=== PATIENT | male | born 1985 | race Caucasian/White ===

== ENCOUNTER → 2018-08-02 | Emergency (ER) | payer OTHER ==
[2018-08-02 10:28] VITALS: BP 134/90
--- NOTE | 2018-08-02 10:43 | UC ---
Throat Pain/Nasal Max HPI - HPI Summary HPI Summary: 33 yo male presents with a sore throat and running nose for the last 3 days. He tells me that at one time he had a temperature of 100.2F. Has been taking tylenol for his discomfort with mild relief. Denies fever, chills, cough, SOB, chest pain. - History of Current Complaint Chief Complaint: UCGeneralIllness Stated Complaint: FEVER Time Seen by Provider: 08/02/18 10:37 Hx Obtained From: Patient Onset/Duration: Sudden Onset Severity: Mild Pain Intensity: 2 Pain Scale Used: 0-10 Numeric - Allergies/Home Medications Allergies/Adverse Reactions: Allergies Allergy/AdvReac Type Severity Reaction Status Date / Time Penicillins Allergy Rash Verified 08/02/18 10:19 Home Medications: Home Medications Acetaminophen [Tylenol] 500 mg PO DAILY PRN 08/02/18 [History Confirmed 08/02/18 ] Colestipol (NF) 1 gm PO BID 08/02/18 [History Confirmed 08/02/18] Multivitamin [Multivitamins] 1 tab PO DAILY 08/02/18 [History Confirmed 08/02/18 ] inFLIXimab* [Remicade*] 08/02/18 [History] PMH/Surg Hx/FS Hx/Imm Hx - Additional Past Medical History Additional PMH: Ulcerative Colitis - Surgical History Surgical History: Yes Surgery Procedure, Year, and Place: t&a-. hernia repair- 09/2012. I&D- rectal abscess- 12/2014. abdominal surgery- 2013- [facility] [employer]. small bowel obstruction- 01/2015 - Family History Known Family History: Positive: None - Social History Occupation: Employed Full-time Lives: With Family Alcohol Use: None Substance Use Type: None Smoking Status (MU): Never Smoked Tobacco Review of Systems Constitutional: Negative Skin: Negative Eyes: Negative ENT: Nasal Discharge, Sinus Congestion, Sinus Pain/Tenderness Respiratory: Cough Cardiovascular: Negative Gastrointestinal: Negative All Other Systems Reviewed And Are Negative: Yes Physical Exam - Summary Physical Exam Summary: GENERAL: NAD. WDWN. No pain distress. SKIN: No rashes, sores, lesions, or open wounds. HEENT: Head: AT/NC Eyes: EOM intact. Conjunctiva clear without inflammation or discharge. Ears: Hearing grossly normal. TMs intact, no bulging, erythema, or edema. Nose: Nasal mucosa pink and moist. NTTP maxillary and frontal sinus. Throat: Posterior oropharynx without exudates, erythema, or tonsillar enlargement. Uvula midline. NECK: Supple. Nontender. No lymphadenopathy. CHEST: CTAB. No r/r/w. No accessory muscle use. Breathing comfortably and in no distress. CV: RRR. Without m/r/g. Pulses intact. Cap refill <2seconds NEURO: Alert. PSYCH: Age appropriate behavior. Triage Information Reviewed: Yes Vital Signs: Initial Vital Signs Temp 98 F 08/02/18 10:21 Pulse 82 08/02/18 10:21 Resp 16 08/02/18 10:21 BP 134/90 08/02/18 10:21 Pulse Ox 97 08/02/18 10:21 Vital Signs Reviewed: Yes Throat Pain/Nasal Course/Dx - Course Course Of Treatment: Suspect viral illness. Exam is WNL and pt has not taken anything other than tylenol for his symptoms. Advised to try Mucinex OTC and flonase. F/u prn - Differential Dx/Diagnosis Provider Diagnoses: Viral syndrome Discharge - Sign-Out/Discharge Documenting (check all that apply): Patient Departure All imaging exams completed and their final reports reviewed: No Studies - Discharge Plan Condition: Stable Disposition: HOME Patient Education Materials: Viral Syndrome (ED) Referrals: No Primary Care Phys,NOPCP [Primary Care Provider] - Additional Instructions: If you develop a fever, shortness of breath, chest pain, new or worsening symptoms - please call your PCP or go to the ED. Your blood pressure was mildly elevated at todays visit. Please see your primary provider within 4 weeks for recheck and re-evaluation. 1) May try OTC mucinex and flonase for your symptoms 2) Continue taking tylenol for any fevers or discomfort - Billing Disposition and Condition Condition: STABLE Disposition: Home
== END | disposition home or self-care (01) ==
LOC: UCEAST 10:01
DX: B34.9 Viral infection, unspecified (principal); K51.90 Ulcerative colitis, unspecified, without complications; Z88.0 Allergy status to penicillin
CPT/HCPCS: 99211; G0463

== ENCOUNTER 2019-01-18 09:55 | Emergency (ER) | payer OTHER ==
--- OUTSIDE RECORDS SUMMARY | 2019-01-18 12:55 | XMS REPORT | Continuity of Care Document ---
:1985 External Reference #:[id number] Author Name Collette Snyder O.D. Address [address] [place] [address] Care Team Providers Name Role Phone Rudi Abrams D.O. Primary Care Physician Unavailable Payers Date Identification Numbers Payment Provider Subscriber Policy Number: [id number] [employer] Ppo/Pos/Epo/Nap Jamil Leslie PayID: [id number] [address] [place] [address] Advance Directives Description No Information Available Problems Date Description Provider Status Onset: Crohn's disease Active Onset: 01/10/2019 Regular astigmatism Collette Snyder O.D. Active Onset: 01/10/2019 Myopia Collette Snyder O.D. 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 Employment ETOH Use Occasionally consumes alcohol Tobacco Use Start: Unknown Patient has never smoked Recreational Drug Use Denies Drug Use Smoking Status Reviewed: 01/10/19 Patient has never smoked Allergies, Adverse Reactions, Alerts Date Description Reaction Status Severity Comments 01/10/2019 Penicillin Active Medications Medication Date Status Form Strength Qnty SIG Indications Ordering Provider Colestipol HCL Active Tablets 1gm Leonor Blackwell 0 Remicade Active Solution Rec 100mg Unknown 0 Immunizations Description No Information Available Vital Signs Description No Information Available Results Description No Information Available Procedures Date Code Description Status 09/01/2010 30114 Determination Of Refractive State Completed 09/01/2010 90144 New Patient Comprehensive Exam Completed Encounters Description No Information Available Plan of Treatment 01/10/2019 - Collette Snyder O.D.H52.13 Myopia, bilateralComments:You have Myopia, or near sightedness. I have given you a prescription for glasses.Follow up:2 YEARS You can expect to have your eyes dilated at your next visit. If Dr. Snyder orders any additional testing, it may require extra time. We recommend that you bring sunglasses, as dilation drops often make you light sensitive until they wear off. We always recommend you bring someone to drive [place] if you are uncomfortable driving with your eyes dilated. If you have any questions before your next visit, feel free to call our office at [phone].H52.223 Regular astigmatism, bilateralComments:Smoking can increase the risk of developing or worsening any eye related disease, as well as affect your overall health. If you are a smoker, we strongly recommend that you quit.If you are not a smoker, we strongly recommend that you do not start. Astigmatism is a common vision condition that happens when a person's cornea is not symmetrical. Dr. Snyder has given you a prescription to correct for this.
[2019-01-18 12:57] VITALS: BP 143/83
[2019-01-18 13:33] LABS: Influenza A Molecular POSITIVE (Negative)
[2019-01-18] MEDS ORDERED: Acetaminophen TAB* 325 MG PO ONE (14:00)
--- NOTE | 2019-01-18 14:00 | UC ---
FLU HPI - HPI Summary HPI Summary: 34 y/o male presents to the urgent care c/o fever, body aches, DENIS, clear nasal discharge, dry cough. Pain is 4/10 since yesterday. she has taken Tylenol PO to alleviate symptoms. She thinks she has been exposed to the flu. Pt denies SOB, chest pain, abdominal pain, N/V/D - History of Current Complaint Chief Complaint: UCGeneralIllness Stated Complaint: COUGH FEVER Time Seen by Provider: 01/18/19 13:18 Hx Obtained From: Patient Onset/Duration: Gradual Onset, Lasting Days - 1 day, Still Present, Worse Since - today w/ fever Severity Currently: Mild Severity Initially: Mild Pain Intensity: 4 Pain Scale Used: 0-10 Numeric Associated Signs & Symptoms: Positive: Fever, Myalgia, Cough - dry, Nasal Congestion - clear, Headache - mild - Risk Factors Influenza Risk Factors: Negative - Allergy/Home Medications Allergies/Adverse Reactions: Allergies Allergy/AdvReac Type Severity Reaction Status Date / Time Penicillins Allergy Rash Verified 01/18/19 12:57 PMH/Surg Hx/FS Hx/Imm Hx Previously Healthy: Yes Other Endocrine History: Chrons disease - Surgical History Surgical History: Yes Surgery Procedure, Year, and Place: t&a-. hernia repair- 09/2012. I&D- rectal abscess- 12/2014. abdominal surgery- 2013- [facility] [employer]. small bowel obstruction- 01/2015 - Family History Known Family History: Positive: Diabetes - Social History Occupation: Employed Full-time Lives: With Family Alcohol Use: None Substance Use Type: None Smoking Status (MU): Never Smoked Tobacco Review of Systems All Other Systems Reviewed And Are Negative: Yes Constitutional: Positive: Fever, Chills, Fatigue, Other - body aches Skin: Positive: Negative Eyes: Positive: Negative ENT: Positive: Nasal Discharge - clear, Sinus Congestion Respiratory: Positive: Cough - dry Cardiovascular: Positive: Negative Gastrointestinal: Positive: Negative Genitourinary: Positive: Negative Motor: Positive: Negative Neurovascular: Positive: Negative Musculoskeletal: Positive: Myalgia Neurological: Positive: Headache Psychological: Positive: Negative Is Patient Immunocompromised?: No Physical Exam - Summary Physical Exam Summary: VITAL SIGNS: Reviewed. GENERAL: Patient is a well developed and nourished male who is sitting comfortable in the examining table. Patient is not in any acute respiratory distress. HEAD AND FACE: No signs of trauma. No ecchymosis, hematomas or skull depressions. No sinus tenderness. EYES: PERRLA, EOMI x 2, No injected conjunctiva, no nystagmus. No photophobia. EARS: Hearing grossly intact. Ear canals and tympanic membranes are within normal limits. Nose: edematous and erythematous nasal mucosa w/ clear nasal discharge. MOUTH: Positive no erythema, no tonsillar enlargement. Uvula in midline. NECK: Supple, trachea is midline, Positive anterior cervical lymphadenopathy, no JVD, no carotid bruit, no c-spine tenderness, neck with full ROM. No meningeal signs, no Kernig's or brudzinskis signs. CHEST: Symmetric, no tenderness at palpation LUNGS: Clear to auscultation bilaterally. No wheezing or crackles. CVS: Regular rate and rhythm, S1 and S2 present, no murmurs or gallops appreciated. ABDOMEN: Soft, non-tender. No signs of distention. No rebound no guarding, and no masses palpated. Bowel sounds are normal. EXTREMITIES: FROM in all major joints, no edema, no cyanosis or clubbing. NEURO: Alert and oriented x 3. No acute neurological deficits. Speech is normal and follows commands. SKIN: Dry and warm Triage Information Reviewed: Yes Vital Signs: Initial Vital Signs Temp 100.8 F 01/18/19 12:55 Pulse 110 01/18/19 12:55 Resp 20 01/18/19 12:55 BP 143/83 01/18/19 12:55 Pulse Ox 100 01/18/19 12:55 Flu Course/Dx - Course Course Of Treatment: 34 y/o male presents to the urgent care c/o fever, body aches, DENIS, clear nasal discharge, dry cough. Pain is 4/10 since yesterday. she has taken Tylenol PO to alleviate symptoms. She thinks she has been exposed to the flu. Pt denies SOB, chest pain, abdominal pain, N/V/D. Pt Febrile with URI on examination. .Influenza A&B ordered: result: Influenza A positive. Pt givne at the clinic Tylenol PO to alleviate symptoms by the nurse. Pt tolerated well medication and temp decrease.Pt Rx Tamiflu and advised to continue taking tylenol PO to alleviates symptoms. Advised on hand washing and wear a mask to avoid spreading. Pt advised to rest, increase fluid intake, eat well and avoid strenuous exercise. Pt's BP is elevated today advised to decrease salt in diet, monitor BP and f/u with PCP for further management.If symptoms do not improve or worsen advised to return to the urgent care or f/u with her PCP for further evaluation and treatment. Pt understood and agreed - Differential Dx/Diagnosis Differential Diagnosis/HQI/PQRI: Bronchitis, Influenza, Pneumonia, Upper Respiratory Infection Provider Diagnosis: Influenza A, Fever, Elevated BP without diagnosis of hypertension Discharge - Sign-Out/Discharge Documenting (check all that apply): Patient Departure - d/c home All imaging exams completed and their final reports reviewed: No Studies - Discharge Plan Condition: Stable Disposition: HOME Prescriptions: Oseltamivir CAP* [Tamiflu CAP*] 75 mg PO BID #10 cap Patient Education Materials: Influenza (ED) Forms: *Work Release Referrals: Rudi Abrams DO [Primary Care Provider] - 2 Days Additional Instructions: 1- Please take the full course of the antiviral to avoid resistance. Encourage hand washing and wear a mask to avoid spreading. 2-Please continue taking Tylenol PO q6-8hrs prn as instructed after meals to alleviate fever, and sore throat. Increase fluid intake, eat well, rest and avoid strenuous exercise 3-If symptoms do not improve or worsen please return to the urgent care or f/u with your PCP in 2 days for further evaluation and treatment. 4- Your BP is elevated today. please decrease salt in your diet, monitor BP and if it continues to be elevated please f/u with your PCP for further management. - Billing Disposition and Condition Condition: STABLE Disposition: Home
== END 2019-01-18 14:15 | disposition home or self-care (01) ==
LOC: UCEAST 09:55
DX: J10.1 Influenza due to other identified influenza virus with other respiratory manifestations (principal); R50.9 Fever, unspecified; R03.0 Elevated blood-pressure reading, without diagnosis of hypertension; Z88.0 Allergy status to penicillin
CPT/HCPCS: 99211; A9270-GY; G0463